=== PATIENT | male | born 1980 | race Caucasian/White ===

== ENCOUNTER 2023-08-19 07:15 | Emergency (ER) | payer OTHER, SELFPAY ==
[2023-08-19 07:16] VITALS: BP 136/93
--- NOTE | 2023-08-19 08:58 | ED.GENMED ---
History of Present Illness
General
Chief Complaint: Alcohol Problem
Source: patient and records
Exam Limitations: none
Time Seen by Provider: 08/19/23 08:31
Nursing documentation reviewed up to this point in time: agreed with
Travel History
Have you had any contact with someone who has COVID-19?: No
Do you have any symptoms of coronavirus? Fever > 100 degrees, chills, cough, shortness of breath, sore throat, loss of taste or smell, muscle aches, or headache?: No
History of Present Illness
History of Present Illness:
Patient is a 42-year-old male who presents to the emergency department complaining of feeling anxious With nausea and vomiting that he states is from alcohol abuse. Patient is a binge drinker according to the patient. Patient feels nauseous and
anxious but no hallucinations. Patient has been through rehab the last time and October. Patient is not suicidal. Patient does feel shaky. Patient denies chest pain or shortness of breath.
Past History
Past History
ED Past Medical History: Other (Alcohol abuse, anxiety)
ED Past Surgical History: None
Social History
Tobacco: Smoker
Alcohol: Binge drinker
Drug: None
Personal:
Review of Systems
Review of Systems
All Other Systems: ROS reviewed and negative except as documented in HPI and ROS
Constitutional: Reports fatigue and chills
EENT: Reports no symptoms
Respiratory: Reports no symptoms
ABD/GI: Reports nausea, vomiting and anorexia; Denies abdominal pain, diarrhea, bloody stools or black stools
: Reports no symptoms
Musculoskeletal: Reports no symptoms
Skin: Reports no symptoms
Neurological: Reports no symptoms
Hematologic/Lymphatic: Reports no symptoms
Psychiatric: Reports depression and anxiety; Denies suicidal
Phy Exam
Physical Exam
Physical Exam:
Physical Exam
General: moderate distress, alert and anxious, well nourished, dry mucous membranes
HENT: Normocephalic, supple with no lymphadenopathy, no thyromegaly
Eyes: Clear sclera, conjuctiva without injection, no nystagmus
Heart: Regular rhythm and rate. No S3, S4. No murmur.
Lungs: No respiratory distress, no stridor, lung sounds clear and equal bilaterallynder
Abdomen: Soft, nontender, no organomegaly, no CVA tenderness, BS good
Neuro: Alert and oriented x 3, CN II - XII intact, no motor focality, no cerebellar dysfunction, minimal tremor
Skin: no rash
Psychiatric: well kept. interactive and cooperative, anxious
Extremities: No edema, cyanosis, tenderness, Good and equal peripheral pulses.
Scores
Withdrawal Assessment of Alcohol
Withdrawal Assessment Completed?: Yes
Nausea and Vomiting: Intermittent nausea with dry heaves
Tactile Disturbances: Very mild itching, pins and needles, burning or numbness
Tremor: Not visible, but can be felt fingertip to fingertip
Auditory Disturbances: Not present
Paroxysmal Sweats: No sweat visible
Visual Disturbances: Not present
Anxiety: Moderately anxious, or guarded, so anxiety is inferred
Headache, Fullness in Head: Not present
Agitation: Normal activity
Orientation and clouding of sensorium: Oriented and can do serial additions
Total CIWA Score: 10
Alcohol Withdrawal Medication Recommendation: Equal to MSAS Score 5-7. Lorazepam 1mg IV or PO NOW & re-assess q2hrs
Course
Orders/Labs/Results
Orders:
Orders
08/19/23 08:44
Lorazepam [Ativan] 1 mg IV NOW STA
08/19/23 08:47
0.9% Sodium Chloride 1000 ml [Nss] 1,000 ml IV BOLUS
Ondansetron Injectable [Zofran] 4 mg IV NOW STA
Thiamine Injection 100 mg IV NOW STA
08/19/23 09:31
Alcohol Urgent
Complete Blood Count/With Diff Urgent
Comprehensive Metabolic Panel Urgent
Magnesium Urgent
08/19/23 11:14
Urinalysis Reflex To Culture Urgent
Date Specimen was Collected: 08/19/23
Time Specimen was Collected: 10:07
Urine Drug Abuse Screen Urgent
Date Specimen was Collected: 08/19/23
Time Specimen was Collected: 10:07
Urine Microscopic Reflex Cult Urgent
Abnormal Lab Results
08/19/23 08/19/23
09: 11:14
MCHC 37.2 H g/dL
(33.0-37.0)
Absolute Lymphs (auto) 0.9 L 10^3/uL
(1.2-3.4)
Lymphocytes % 14.9 L %
(20.5-51.1)
Monocytes % 10.6 H %
(1.7-9.3)
Sodium 134 L mmol/L
(135-145)
Chloride 94 L mmol/L
(98-107)
Glucose 148 H mg/dl
(70-99)
Total Bilirubin 1.4 H mg/dl
(0.2-1.3)
AST 395 H U/L
(17-59)
ALT 288 H U/L
(0-50)
Urine Ketones 1+ A
(Negative)
Leukocyte Esterase Rfl Trace A
(Negative)
Urine Bacteria (Reflex) Few A
(Negative)
Urine Glucose Trace A
(Negative)
08/19/23 09:31
08/19/23 09:31
Vital Signs
Initial and Last Documented VS:
Initial Vital Signs
Temp Pulse Resp BP Pulse Ox
97.9 F 111 18 136/93 96
08/19/23 07:16 08/19/23 07:16 08/19/23 07:16 08/19/23 07:16 08/19/23 07:16
Last Documented Vital Signs
Temp Pulse Resp BP Pulse Ox
97.9 F 111 18 136/93 96
08/19/23 07:16 08/19/23 07:16 08/19/23 07:16 08/19/23 07:16 08/19/23 07:16
*Radiology
Radiology exam reviewed: other (na)
*Pulse Oximetry
Patient hypoxic: no
*EKG
Interpreted by ED Provider?: NA
*Retail Marketing Manager Interpretation
Rate: Retail Marketing Manager- N/A
*Critical Care Note
Total Time (30-74mins, 75-104mins- exclusive of procedures): Not Applicable
Update Note
Update Note:
Patient seen by Jorje cornejo and will follow-up as an outpatient. Patient will be discharged.
ED Attending Note
-
Portions of this chart may have been created with voice recognition software.� Occasional wrong word or��sound alike� substitutions may have occurred due to the inherent limitations of voice recognition software.
Discharge Plan
Departure
Patient Disposition: Home (Routine Discharge)
Date of Disposition: 08/19/23
Time of Disposition: 11:57
Patient with high blood pressure during this ER visit?: Yes
Condition: Fair
Covid-19: Not Applicable
Discharge Problem:
Alcohol abuse
Instructions: Alcohol Withdrawal (DC), Alcohol Use Disorder (DC), BLOOD PRESSURE
Prescriptions:
New
ondansetron 8 mg tablet,disintegrating
8 mg PO TID PRN (Reason: nausea and vomiting) Qty: 30 0RF
lorazepam [Ativan] 1 mg tablet
1 mg PO TID PRN (Reason: alcohol withdrawal) Qty: 10 0RF
No Action
clonazepam 0.5 MG tablet
0.5 mg PO HSPRN PRN (Reason: sleep)
Referrals:
Mono Hannon MD [Family Provider] - Follow up in 2-3 days
Activity Restrictions/Additional Instructions:
Follow-up with your physician and counselor as instructed.
Discharge Date and Time
Print Language: TRISTANIAN
[2023-08-19] MEDS: NSS 1000 IV (09:31)
[2023-08-19] MEDS: THIAMINE INJECTION 100 MG IV (09:41)
[2023-08-19] MEDS: ZOFRAN 4 MG IV (09:42)
[2023-08-19] MEDS: ATIVAN 1 MG IV (09:43)
[2023-08-19 10:25] LABS: Potassium 3.5 mmol/L (3.5-5.1)
[2023-08-19 10:28] LABS: ALT (SGPT) 288 U/L (0-50); AST (SGOT) 395 U/L (17-59); Albumin 4.8 g/dl (3.5-5.0); Alcohol 271 mg/dl; Alkaline Phosphatase 118 U/L (38-126); Blood Urea Nitrogen 14 mg/dl (9-20); Carbon Dioxide 27 mmol/L (22-30); Chloride 94 mmol/L (98-107); Glucose 148 mg/dl (70-99); Sodium 134 mmol/L (135-145); Total Bilirubin 1.4 mg/dl (0.2-1.3); eGFR > 60.00
[2023-08-19 10:30] LABS: % Basophils 0.5 % (0-2); % Eosinophils 0.2 % (0-6); % Immature Granulocytes 0.3 % (0-0.5); % Lymphocytes 14.9 % (20.5-51.1); % Monocytes 10.6 % (1.7-9.3); % Neutrophils 73.5 % (42.2-75.2); Absolute Lymphocytes 0.9 10^3/uL (1.2-3.4); Absolute Monocytes 0.6 10^3/uL (0.1-0.6); Absolute Neutrophils 4.3 10^3/uL (1.4-6.5); Hematocrit 41.7 % (39.0-52.0); Hemoglobin 15.5 g/dL (13.0-18.0); Mean Corp Hgb Conc. 37.2 g/dL (33.0-37.0); Mean Corpuscular Hgb 30.2 pg (27.0-31.0); Mean Corpuscular Volume 81.3 fL (80.0-94.0); Mean Platelet Volume 8.8 fL (7.4-10.4); Nucleated Red Blood Cells % 0 % (-); Platelet Count 198 10^3/uL (130-400); Red Blood Cell Count 5.13 10^6/uL (4.70-6.10); Red Cell Dist. Width 13.3 % (11.5-14.5); White Blood Cell Count 5.9 10^3/uL (4.8-10.8)
[2023-08-19 11:23] LABS: Urine Albumin Trace (Neg - Trace); Urine Bilirubin Negative (Negative); Urine Character Clear (Clear); Urine Color Yellow; Urine Glucose Trace (Negative); Urine Ketone 1+ (Negative); Urine Leukocyte Trace (Negative); Urine Nitrite Negative (Negative); Urine Occult Blood Negative (Negative); Urine Specific Gravity 1.015 (<1.030); Urine Urobilinogen Negative (Neg - 1+); Urine pH 6.5 (5.0-9.0)
[2023-08-19 11:54] LABS: Urine Bacteria Few (Negative); Urine Red Blood Cell None Seen /HPF (0-2)
[2023-08-19 12:02] LABS: Amphetamines Positive (Negative); Barbiturates Negative (Negative); Benzodiazepines Negative (Negative); Buprenorphine Negative (Negative); Cocaine Negative (Negative); Methadone Negative (Negative); Methamphetamines Negative (Negative); Opiates Negative (Negative); Phencyclidine Negative (Negative)
[2023-08-19 12:03] LABS: Marijuana Positive (Negative); Tricyclic Antidepressants Negative (Negative)
[2023-08-19 12:13] LABS: Fentanyl, Urine Negative (Negative)
== END 2023-08-19 12:00 | disposition home or self-care (01) ==
LOC: EMR 07:15
PROVIDERS: EMERGENCY PHYSICIAN Emergency Medicine; FAMILY PHYSICIAN Family Medicine
DX: F10.10 Alcohol abuse, uncomplicated (principal); F41.9 Anxiety disorder, unspecified; F17.200 Nicotine dependence, unspecified, uncomplicated
CPT/HCPCS: 99284; 96374; 96375 ×2; 96361; 80053; 80306; 80307; 81003; 81015; 82077; 83735; 85025

== ENCOUNTER 2023-10-25 02:13 | Emergency (ER) | payer BC, SELFPAY ==
[2023-10-25 02:14] VITALS: BP 138/106
[2023-10-25 02:17] VITALS: BMI 25.7
--- NOTE | 2023-10-25 02:40 | ED.GENMED ---
History of Present Illness
<ANA Escobar - Last Filed: 10/25/23 04:27>
General
Chief Complaint: Substance Abuse
Source: patient
Exam Limitations: none
Time Seen by Provider: 10/25/23 02:31
Travel History
Have you had any contact with someone who has COVID-19?: No
Do you have any symptoms of coronavirus? Fever > 100 degrees, chills, cough, shortness of breath, sore throat, loss of taste or smell, muscle aches, or headache?: No
History of Present Illness
History of Present Illness:
43 year old male with hx of anxiety and alcohol abuse who presents with symptoms of SOB, anxiety, and feeling of throat closing that began just prior to arrival. Pt states he ingested THC oil today at midnight. Then 2 hours after began to feel his
throat dry and close up. States he felt like he could not breathe and felt dizzy. He also reports nausea and gagging. Denies vomiting, chest pain, abdominal pain. Pt has a hx of alcohol abuse. His last drink was 15 hours ago. Denies any other drug
or tobacco use. Denies hallucinations, SI, HI.
Past History
<ANA Escobar - Last Filed: 10/25/23 04:27>
Past History
ED Past Medical History: Other (Alcohol abuse, anxiety)
ED Past Surgical History: None
Social History
Tobacco: Smoker
Alcohol: Binge drinker
Drug: None
Personal:
Review of Systems
<ANA Escobar - Last Filed: 10/25/23 04:27>
Review of Systems
Allergies reviewed?: Yes
All Other Systems: ROS reviewed and negative except as documented in HPI and ROS
Constitutional: Reports no symptoms
EENT: Reports no symptoms
Respiratory: Reports trouble breathing
Cardiac: Reports no symptoms
ABD/GI: Reports nausea and other (gagging)
: Reports no symptoms
Musculoskeletal: Reports no symptoms
Skin: Reports no symptoms
Neurological: Reports dizzy
Endocrine: Reports no symptoms
Hematologic/Lymphatic: Reports no symptoms
Psychiatric: Reports anxiety
Phy Exam
<ANA Escobar - Last Filed: 10/25/23 04:27>
General Physical Exam
General Presentation: mild distress and other
General age: appears stated age
General Skin: warm and dry
General Habitus: normal
General Mental: alert, anxious and tearful
Cardiovascular Exam
Cardiovascular Exam: no edema, no gallop, no murmur and tachycardia
Pulmonary Exam
Pulmonary Exam: lungs clear, no respiratory distress, no rales, no crackles, no rhonchi, no wheezing and no cough
Neurological Exam
Neurological Exam: alert and oriented x3
Skin Exam
Skin Exam: normal color and warm/dry
Psychiatric Exam
Psychiatric Exam: anxious
Course
<ANA Escobar - Last Filed: 10/25/23 04:27>
Vital Signs
Initial and Last Documented VS:
Initial Vital Signs
Temp Pulse Resp BP Pulse Ox
98.4 F 109 20 138/106 97
10/25/23 02:14 10/25/23 02:14 10/25/23 02:14 10/25/23 02:14 10/25/23 02:14
Last Documented Vital Signs
Temp Pulse Resp BP Pulse Ox
98.4 F 109 20 138/106 97
10/25/23 02:14 10/25/23 02:14 10/25/23 02:14 10/25/23 02:14 10/25/23 02:14
<Florence Vasquez DO - Last Filed: 10/25/23 03:14>
Vital Signs
Initial and Last Documented VS:
Initial Vital Signs
Temp Pulse Resp BP Pulse Ox
98.4 F 109 20 138/106 97
10/25/23 02:14 10/25/23 02:14 10/25/23 02:14 10/25/23 02:14 10/25/23 02:14
Last Documented Vital Signs
Temp Pulse Resp BP Pulse Ox
98.4 F 109 20 138/106 97
10/25/23 02:14 10/25/23 02:14 10/25/23 02:14 10/25/23 02:14 10/25/23 02:14
<ANA Escobar - Last Filed: 10/25/23 04:27>
MDM/Problems Addressed
Differential Diagnosis Includes:
drug intoxication
MDM/Problems Addressed:
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
Chronic conditions affecting care: Psychiatric illness (anxiety, alcohol abuse)
<ANA Escobar - Last Filed: 10/25/23 04:27>
*Critical Care Note
Total Time (30-74mins, 75-104mins- exclusive of procedures): Not Applicable
<Florence Vasquez DO - Last Filed: 10/25/23 03:14>
*Pulse Oximetry
Patient hypoxic: no
ED Attending Note
<ANA Escobar - Last Filed: 10/25/23 04:27>
-
Portions of this chart may have been created with voice recognition software.� Occasional wrong word or��sound alike� substitutions may have occurred due to the inherent limitations of voice recognition software.
<Florence Vasquez DO - Last Filed: 10/25/23 03:14>
ED Attending Note
Patient seen and examined by attending physician: Yes
I performed the substantive portion of visit, reviewed & personally made and approve the management plan that is documented in note by myself or REJI.: Yes
I performed a history and physical exam of patient and discussed management with resident, I reviewed resident's note and agree with documented findings and plan of care.: Yes
ED Attending Note:
This is a 43-year-old gentleman who has history of alcohol abuse primarily binge drinking who has been evaluated in this ED August 18 for alcohol withdrawal symptoms related to binge drinking as well as 1 year ago.
More recently he admits to sporadic alcohol use but denies significant binging and reports consuming 4 drinks yesterday but denies daily alcohol use nor recent binge drinking.
He does admit to occasional THC use and tonight consumed a THC oil sublingually prior to going to bed. He awoke approximately 3 hours later with moderate nasal congestion which he admits is a frequent nighttime occurrence which he attributes to
sleeping on feather pillows which he suspects he is allergic to.
While waking with nasal congestion he felt a sense of his throat closing and began to panic calling 911.
Since arrival to the ED he is feeling markedly improved, anxiety and sense of throat closing has resolved.
IV established prehospital and he was given a small bolus of IV fluids but no other interventions.
He denies cough nor fever nor chills, no chest pain.
He does have history of anxiety and admits to occasional anxiety attacks, similar to this.
He did note mild nausea prehospital which has since resolved. No vomiting. Currently thirsty and consuming water without difficulty.
GENERAL: 43-year-old gentleman appears his stated age, awake and alert, pleasant, appears in no acute distress.
EYE: pupils equal and reactive. anicteric
NECK: Supple, nontender, no meningismus, no significant adenopathy.
ENT: posterior pharynx is clear, there is no posterior pharyngeal edema, no exudate nor erythema, oral mucosa is moist. TM clear b/l, nares have moderately boggy pale blue turbinates with scant clear rhinorrhea.
CARDIAC: Regular rate and rhythm. no murmur.
LUNGS: Clear breath sounds bilaterally, no acute respiratory distress, no wheezes/rales/rhonchi
ABDOMEN: Soft, nondistended, without focal tenderness, no r/g, no cvat. normoactive BS.
NEUROLOGICAL: Alert and oriented x3, no focal neuro deficits. Gait is manjarrez and steady.
SKIN: Warm and dry, normal color, skin intact. No rash.
MUSCULOSKELETAL: No C/C/E. peripheral pulses are full and equal b/l. No palpable tenderness.
PSYCH: Normal and appropriate interaction.
Patient admits to nightly nasal congestion and exam consistent with moderate allergic rhinitis. I suspect nighttime allergies related to feather pillows he is lying on.
Waking up with nasal congestion may, in and of itself caused acute anxiety reaction, this may have been exacerbated by recent THC use.
There is no evidence of acute anaphylactoid nor anaphylactic reaction and patient admits to prompt resolution of symptoms upon arrival to the ED.
No indication for laboratory studies nor radiologic studies.
Encouraged to avoid further THC use, avoid exposure to feather pillows. Recommend hypoallergenic pillows.
He does have history of alcohol abuse primarily binge drinking and admits to continued alcohol use but denies daily significant consumption and there is no evidence of alcohol withdrawal on exam.
Encouraged to continue to avoid alcohol consumption, continue with outpatient counseling and follow-up with PCP.
Discharge Plan
Departure
Patient Disposition: Home (Routine Discharge)
Date of Disposition: 10/25/23
Time of Disposition: 03:03
Patient with high blood pressure during this ER visit?: Yes
Condition: Good
Discharge Problem:
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
Instructions: Environmental allergies in adults, Anxiety, Adult ED, BLOOD PRESSURE
Prescriptions:
No Action
clonazepam 0.5 MG tablet
0.5 mg PO HSPRN PRN (Reason: sleep)
ondansetron 8 mg tablet,disintegrating
8 mg PO TID PRN (Reason: nausea and vomiting) Qty: 30 0RF
lorazepam [Ativan] 1 mg tablet
1 mg PO TID PRN (Reason: alcohol withdrawal) Qty: 10 0RF
Activity Restrictions/Additional Instructions:
Avoid further THC consumption as well as avoid exposure to feather pillows. I suspect feather pillows are causing nighttime nasal allergy symptoms and acute anxiety may be attributed to nasal allergies and exacerbated by THC use.
Follow-up with your primary care physician for recheck.
Interventions
Interventions:
*Risk Screen - Suicide Last Done: 10/25/23 03:22
*General Assessment Last Done: 10/25/23 02:14
*Neglect/Abuse Screening Last Done: 10/25/23 03:22
ED- Fall Risk Assessment Last Done: 10/25/23 03:22
*ED COVID-19 Vaccine History Last Done: 10/25/23 03:22
*Nursing Disposition Last Done: 10/25/23 03:25
ED-Psychological Assessment Last Done: 10/25/23 03:22
Discharge Date and Time
Discharge Date/Time: 10/25/23 03:25
Print Language: CHINESE
== END 2023-10-25 03:25 | disposition home or self-care (01) ==
LOC: EMR 02:13
PROVIDERS: EMERGENCY PHYSICIAN Emergency Medicine
DX: F12.980 Cannabis use, unspecified with anxiety disorder (principal); J30.89 Other allergic rhinitis; F41.9 Anxiety disorder, unspecified; F10.10 Alcohol abuse, uncomplicated; F17.200 Nicotine dependence, unspecified, uncomplicated
CPT/HCPCS: 99282